=== PATIENT | female | born 1945 | race Caucasian/White ===

== ENCOUNTER 2018-08-22 09:00 | Day surgery (SDC) | payer MEDICARE, BC ==
[2018-08-22] MEDS ORDERED: PROPOFOL 40 ML (11:14)
== END 2018-08-22 14:59 | disposition home or self-care (01) ==
LOC: GIL 09:00
DX: D50.9 Iron deficiency anemia, unspecified (principal); K29.30 Chronic superficial gastritis without bleeding; I85.00 Esophageal varices without bleeding; K64.8 Other hemorrhoids; K62.89 Other specified diseases of anus and rectum; E78.5 Hyperlipidemia, unspecified
CPT/HCPCS: 43239; 88305; 88312